=== PATIENT | male | born 1980 | race Caucasian/White ===

== ENCOUNTER 2023-04-07 23:22 | Emergency (ER) | payer OTHER ==
[~2023-04-07] VITALS: Ht 182.9 cm; Wt 90.7 kg
--- NOTE | 2023-04-07 23:45 | NUR ---
Pt was brought in due to ETOH and N/Vomiting and S/P 4MG Zofran IM was given in Field. Pt care continue as awaits MD orders.
[2023-04-08] MEDS ORDERED: IV NORMAL SALINE 1000 ML BAG IV ONE
[2023-04-08] MEDS ORDERED: THIAMINE HCL 200 MG/2 ML VIAL IV ONE
[2023-04-08 00:25] LABS: CARBON DIOXIDE 25 mmol/L (21-32); CHLORIDE 102 mmol/L (98-107); CREATININE 1.1 mg/dL (0.6-1.3); GLUCOSE 222 mg/dL (74-106); POTASSIUM 4.8 mmol/L (3.5-5.1); UREA NITROGEN, BLOOD 23 mg/dL (7-18)
[2023-04-08 00:28] LABS: HEMATOCRIT 41.8 % (36.7-47.1); MEAN CORPUSCULAR HEMOGLOBIN 27.3 uug (23.8-33.4); MEAN CORPUSCULAR VOLUME 82.7 fL (73.0-96.2); PLATELET COUNT (AUTO) 248 K/uL (152-348)
[2023-04-08 00:31] LABS: ALANINE AMINOTRANSFERASE 29 U/L (16-63); ALKALINE PHOSPHATASE 62 U/L (50-136); ASPARTATE AMINOTRANSFERASE 21 U/L (15-37); BILIRUBIN,DIRECT 0.1 mg/dL (0.0-0.2); BILIRUBIN,TOTAL 0.4 mg/dL (0.2-1.0); TOTAL PROTEIN, SERUM 7.8 g/dL (6.4-8.2)
[2023-04-08 00:34] LABS: ACETAMINOPHEN < 2.0 ug/mL (10-30)
[2023-04-08] MEDS ORDERED: THIAMINE HCL 200 MG/2 ML VIAL ONE (00:37)
[2023-04-08 00:45] LABS: *BILIRUBIN,URIN NEGATIVE (NEGATIVE); *BLOOD, URINE NEGATIVE (NEGATIVE); *CLARITY,URINE CLEAR (CLEAR); *COLOR,URINE YELLOW (YELLOW); *KETONES,URINE TRACE (NEGATIVE); *UROBILINOGEN,URINE 0.2 E.U./dl (NORMAL); LEUKOCYTE ESTERASE ,URINE NEGATIVE (NEGATIVE); NITRITE, URINE NEGATIVE (NEGATIVE); PH,URINE 5.5 (5.0-8.0); UGLUCOSE 1+ (NEGATIVE)
--- NOTE | 2023-04-08 00:53 | NUR ---
Pt care continue as urine sent to Lab after IN/OUT done and also pt received 0.9NS [id number] with VitB1 100MG IVP as ordered.
[2023-04-08 01:04] LABS: *AMPHETAMINE, URINE NEGATIVE (NEGATIVE); *CANNABINOID, URINE NEGATIVE (NEGATIVE); *COCCAINE, URINE NEGATIVE (NEGATIVE); *PHENCYCLIDINE SCREEN,URINE NEGATIVE (NEGATIVE)
--- NOTE | 2023-04-08 02:46 | NUR ---
Pt is resting with Vitals remain stable as he is been monitor closely with at bedside. Pt care continue.
--- NOTE | 2023-04-08 05:47 | NUR ---
Pt noted more alert, responsive and stable with no S/S off distress as just left the unit. Pt care continue as he is been monitor closely while assist as needed.
[2023-04-08 06:11] VITALS: BP 118/76
--- NOTE | 2023-04-08 06:12 | NUR ---
Pt is noted back on the unit as he is been discharged to home with no S/S off distress and all discharged instructions given.
[2023-04-08 08:20] LABS: BACTERIA,URINE FEW /HPF (NONE SEEN); RBC,URINE 0-3 /HPF (0-3); SQUAMOUS EPITHELIAL CELL,UR FEW /HPF (NONE SEEN); URINE AMORPHOUS URATE MANY /HPF
[2023-04-08 08:21] LABS: WBC,URINE NONE SEEN /HPF (0-3)
== END 2023-04-08 06:13 | disposition home or self-care (01) ==
LOC: ER 23:22
DX: F10.129 Alcohol abuse with intoxication, unspecified (principal); R11.10 Vomiting, unspecified; R73.9 Hyperglycemia, unspecified; Y90.6 Blood alcohol level of 120-199 mg/100 ml
CPT/HCPCS: 36415; 99283; 80307; 80076; 80048; 81001; 83036; 85025; 96361; 96374; 80299; 80320; J3411; J7040; A4663; C1758; G0480